=== PATIENT | male | born 1945 | race Caucasian/White ===

== ENCOUNTER → 2024-12-08 | Outpatient (CLI) | payer MEDICARE, BC, SELFPAY ==
[2024-12-08 08:18] LABS: Basophils % (Auto) 1 % (0-2.5); Eosinophils # (Auto) 0.2 Thou/mm3 (0.0-0.5); Eosinophils % (Auto) 4 % (0-10); Hemoglobin 13.8 g/dL (13.5-16.0); Immature Granulocytes % (Auto) 0 % (0-0); Immature Granulocytes Auto 0.01 Thou/mm3 (0.00-0.00); Lymphocytes # (Auto) 2.4 Thou/mm3 (1.0-4.8); Lymphocytes % (Auto) 50 % (10-50); Mean Corpuscular HGB Conc 35.4 g/dl (31.0-37.0); Mean Corpuscular Hemoglobin 30.6 pg (25.0-35.0); Mean Corpuscular Volume 87 fL (80-100); Monocytes # (Auto) 0.5 Thou/mm3 (0.0-0.8); Monocytes % (Auto) 9 % (0-12); Neutrophils # (Auto) 1.8 Thou/mm3 (1.8-7.7); Neutrophils % (Auto) 37 % (37-80); Nucleated Red Blood Cell % 0 /100 WBC (0); Platelet Count 176 Thou/mm3 (140-440); Red Blood Count 4.51 Miln/mm3 (4.50-5.90); White Blood Count 4.9 Thou/mm3 (3.8-10.6)
[2024-12-08 08:22] LABS: Alanine Aminotransferase 17 U/L (10-49); Albumin, Serum 4.3 gm/dL (3.4-4.8); Albumin/Globulin Ratio 1.9 (1.2-2.2); Alkaline Phosphatase 68 U/L (46-116); Anion Gap 9 (7-16); Aspartate Amino Transferase 19 U/L (0-34); BUN/Creatinine Ratio 19 Ratio (12-20); Bilirubin,Total 0.5 mg/dL (0.3-1.2); Blood Urea Nitrogen 19 mg/dL (9-23); Calcium 8.6 mg/dL (8.3-10.6); Calcium (Corrected) 8.6 mg/dL (8.5-10.1); Carbon Dioxide 28.2 mMol/L (20.0-31.0); Cardiac Risk Estimate 3.2 RATIO (4.0-6.7); Chloride 106 mMol/L (98-107); Cholesterol 150 mg/dL (132-200); Globulin 2.3 gm/dL (2.3-3.5); Glucose 92 mg/dL (74-106); HDL Cholesterol 47 mg/dL (40-60); LDL Cholesterol,Calculated 92 mg/dL (0-130); Osmolality,Calculated 287 (275-295); Potassium 4.2 mMol/L (3.4-5.1); Sodium 143 mMol/L (136-145); Total Protein 6.6 gm/dL (5.7-8.2); Triglycerides 54 mg/dL (30-150); eGFR > 60 See Note
[2024-12-08 08:23] LABS: Prostate Specific Antigen 0.75 ng/mL (0-4.00)
== END | disposition home or self-care (01) ==
LOC: COPL 07:03
PROVIDERS: PCP Family Medicine; Referring Provider Family Medicine; Visit Provider Family Medicine
DX: N40.1 Benign prostatic hyperplasia with lower urinary tract symptoms (principal); N32.81 Overactive bladder; C44.02 Squamous cell carcinoma of skin of lip; F02.A0 Dementia in other diseases classified elsewhere, mild, without behavioral disturbance, psychotic disturbance, mood disturbance, and anxiety; R79.9 Abnormal finding of blood chemistry, unspecified; G47.01 Insomnia due to medical condition
CPT/HCPCS: 36415; 80053; 80061; 84153; 85025

== ENCOUNTER → 2025-02-17 | Outpatient (BNVA) | payer MEDICARE, BC, SELFPAY | END | disposition home or self-care (01) | PROVIDERS: PCP Family Medicine; Referring Provider Family Medicine; Visit Provider Urology | DX: N40.1 Benign prostatic hyperplasia with lower urinary tract symptoms (principal); N13.8 Other obstructive and reflux uropathy | CPT/HCPCS: 81003; 99212; G0463 ==

== ENCOUNTER → 2025-02-28 | Outpatient (CLI) | payer MEDICARE, BC, SELFPAY ==
[2025-02-28 13:53] LABS: Campylobacter PCR Negative (Negative); Salmonella Species PCR Negative (Negative); Shiga Toxin PCR Negative (Negative); Shigella Species PCR Negative (Negative)
[2025-03-04 22:04] LABS: Source STOOL
[2025-03-04 22:04] LABS: Source STOOL
[2025-03-05 22:04] LABS: Source STOOL
[2025-03-07 07:04] LABS: Fecal Globin Result NOT DETECTED (NOT DETECTED)
== END | disposition home or self-care (01) ==
LOC: SLDO 08:14
PROVIDERS: PCP Family Medicine; Referring Provider Physician Assistant; Visit Provider Physician Assistant
DX: R19.7 Diarrhea, unspecified (principal)
CPT/HCPCS: 82274; 87015; 87045; 87046; 87177; 87205; 87209; 87899; G0328

== ENCOUNTER 2025-04-21 10:45 | Day surgery (SDC) | payer MEDICARE, BC, SELFPAY ==
[2025-04-21] VITALS (9 sets, daily range): BP systolic 125–159; BP diastolic 67–79; PULSE 51–72; RESP 10–17; TEMP 36.6–36.8; O2SAT 94–100; BMI 25.4
[2025-04-21] MEDS: SODIUM CHLORIDE 0.9% 500 ML 500 ML 20 ML IV (12:25)
[2025-04-21] MEDS: fentaNYL CIT INJ 50 mCg/ML AMP 2ML (ASD USE ONLY) IVP (12:29)
[2025-04-21] MEDS: MIDAZOLAM INJ 1 MG/ML VIAL 2 ML (ASD USE ONLY) 2 MG IVP (12:29)
== END 2025-04-21 13:32 | disposition home or self-care (01) ==
PROVIDERS: PCP Physician Assistant; Referring Provider Specialist; Visit Provider Specialist
PROC: 0DBE8ZX Excision of Large Intestine, Via Natural or Artificial Opening Endoscopic, Diagnostic (ICD-10-PCS; CPT 45380; principal; 2025-04-21 11:15)
DX: K57.30 Diverticulosis of large intestine without perforation or abscess without bleeding (principal); K63.89 Other specified diseases of intestine; K62.89 Other specified diseases of anus and rectum; K64.1 Second degree hemorrhoids; R19.4 Change in bowel habit; Z80.0 Family history of malignant neoplasm of digestive organs; N40.0 Benign prostatic hyperplasia without lower urinary tract symptoms; Z79.899 Other long term (current) drug therapy
CPT/HCPCS: 45380; A4217; A4649; J1200; J2250; J3010; J7999